=== PATIENT | male | born 1975 | race Caucasian/White ===

== ENCOUNTER 2025-04-27 20:26 | Inpatient (IN) | payer OTHER, SELFPAY ==
[2025-04-27 16:46] VITALS: BP 157/97
[2025-04-27 17:11] LABS: Hematocrit 46.0 % (39.0-52.0); Hemoglobin 15.5 g/dL (13.0-18.0); Mean Corp Hgb Conc. 33.7 g/dL (33.0-37.0); Mean Corpuscular Volume 89.1 fL (80.0-94.0); Nucleated Red Blood Cells % 0 % (-); Platelet Count 246 10^3/uL (130-400); Red Cell Dist. Width 12.7 % (11.5-14.5)
[2025-04-27 17:27] LABS: ALT (SGPT) 29 U/L (0-50); AST (SGOT) 28 U/L (17-59); Albumin 4.6 g/dl (3.5-5.0); Alkaline Phosphatase 73 U/L (38-126); Blood Urea Nitrogen 16 mg/dl (9-20); Calcium 9.7 mg/dl (8.4-10.2); Carbon Dioxide 26 mmol/L (22-30); Chloride 105 mmol/L (98-107); Glucose 170 mg/dl (70-99); Lipase 112 U/L (23-300); Potassium 4.0 mmol/L (3.5-5.1); Sodium 137 mmol/L (135-145); Total Protein 7.4 g/dl (6.3-8.2); eGFR > 60.00
[2025-04-27 17:41] LABS: Troponin I 0.115 ng/ml
--- NOTE | 2025-04-27 17:50 | ED.GENMED ---
Addendum entered and electronically signed by Emery Louis MD 04/27/25 21:24:
Negative chest x-ray
Original Note:
History of Present Illness
General
Chief Complaint: Chest Pain
Source: patient
Exam Limitations: none
Time Seen by Provider: 04/27/25 17:49
History of Present Illness
History of Present Illness:
50-year-old male has had about 10 days of mostly exertional chest pressure and shortness of breath. Resolved with sitting still. Has had occasional episodes at rest. Will typically last 15 to 20 minutes. Last most significant episode was this
morning although he did have some sense walking back to the room. Currently asymptomatic. No radiation to the jaw or back. No pleuritic pain.
Past History
Past History
ED Past Medical History: Hypercholesterolemia and Hypothyroidism
ED Past Surgical History: Other
Phy Exam
Physical Exam
Physical Exam:
GENERAL: Alert and oriented in no apparent distress
EYE: Orbits normal.
NECK: Supple, no significant adenopathy.
ENT: Pharynx without erythema
CARDIAC: Regular rate and rhythm without any obvious murmurs.
LUNGS: Clear breath sounds,normal
ABDOMEN: Soft, without focal tenderness or distention
NEUROLOGICAL: Alert and oriented , grossly non-focal
SKIN: Warm and dry, no rash or lesion, no discoloration, skin intact.
MUSCULOSKELETAL: No edema,no deformity.Good color
PSYCH: Normal and appropriate interaction.
Scores
Heart Score for Chest Pain Patients
STEMI patient?: No
History: Highly Suspicious
ECG: Normal
Age: >45 - <65 years
Risk Factors: 1 or 2 Risk Factors
Troponin: >1 - <3 x Normal Limit
Heart Score for Chest Pain Patients: 5
Heart Score Risk: 20.3% MACE over next 6 weeks
Course
Orders/Labs/Results
Orders:
Orders
04/27/25 16:49
EKG [Electrocardiogram (*1)] Urgent
Reason for Study: Chest Pain
EKG- Treatment ONCE
04/27/25 17:01
Complete Blood Count/With Diff Urgent
Comprehensive Metabolic Panel Urgent
Lipase Urgent
Troponin I Urgent
04/27/25 18:03
IV Insert/Care/Rem.- Treatment PRN
Aspirin Chewable [Low Strength Aspirin] 324 mg PO NOW STA
Nursing to Place Non Medication Order As Directed
Physician Order: PTT 6 hours after initial start of Heparin infusion
04/27/25 18:19
PTT Urgent
Comment: Obtain baseline before beginning heparin infusion if not already collected
04/27/25 18:25
Heparin 4,000 units IV NOW STA
Nursing to Place Non Medication Order As Directed
Physician Order: PTT 6 hours after initial start of Heparin infusion
04/27/25 18:30
Heparin 35025 Units/250 ml 25,000 units in 250 ml IV PER PROTOCOL
Weight to be used for heparin protocol in kilograms (kg):: 94
Protocol:: Cardiac Tx/Acute Coronary
PTT Goal Range to be used:: PTT 73 to 111 seconds
Order type:: Initial
INITIAL Infusion Dose (UNITS/KG/hr) & then follow protocol:: 12 units/kg/hr
Infusion Dose in UNITS/hr & then follow protocol (UNITS/hr):: 1,000
INFUSION RATE in mL/hr & then follow protocol (mL/hr):: 10
PTT less than or equal to 64 seconds:: Increase rate by 200 units/hr (+ 2 mL/hr)
PTT 64.1 to 72.9 seconds:: Increase rate by 100 units/hr (+ 1 mL/hr)
PTT 73 to 111 seconds:: Target Range. No change in rate.
PTT 111.1 to 130.9 seconds:: Decrease rate by 100 units/hr (- 1 mL/hr)
PTT 131 to 199.9 seconds:: HOLD for 1 hr. Then decrease rate by 200 units/hr (- 2 mL/hr)
PTT greater than or equal to 200 seconds:: HOLD for 2 hrs & Notify Provider. Then decrease by 200 units/hr (-
2 mL/hr)
Lab follow-up:: Each change, PTT q6h until 2 consecutive are therapeutic. Then PTT
daily.
Abnormal Lab Results
04/27/25
17:01
Eosinophils % 8.3 H %
(0-6)
Glucose 170 H mg/dl
(70-99)
Troponin I 0.115 H* ng/ml
04/27/25 17:01
04/27/25 17:01
Vital Signs
Initial and Last Documented VS:
Initial Vital Signs
Temp Pulse Resp BP Pulse Ox
98.0 F 73 18 157/97 98
04/27/25 16:46 04/27/25 16:46 04/27/25 16:46 04/27/25 16:46 04/27/25 16:46
Last Documented Vital Signs
Temp Pulse Resp BP Pulse Ox
98.0 F 60 12 135/91 98
04/27/25 16:46 04/27/25 19:00 04/27/25 19:00 04/27/25 19:00 04/27/25 19:00
MDM/Problems Addressed
Differential Diagnosis Includes:
Patient's story is very concerning for new onset angina/unstable angina. Currently asymptomatic. Aspirin heparin and admit. Discussed with cardiology
*Pulse Oximetry
SaO2: 98
Oxygen Mode of Delivery: Room air
Patient hypoxic: no
*EKG
Interpreted by ED Provider?: Yes
Interpretation: normal
Comparison EKG: no comparison EKG present
Heart Rate: 61
Rate: normal
Rhythm: sinus
Sherman: normal axis
Interval: normal interval
QRS Pattern: normal QRS
Ischemia: no ischemia
*Critical Care Note
Total Time (30-74mins, 75-104mins- exclusive of procedures): 15
ED Attending Note
-
Portions of this chart may have been created with voice recognition software.� Occasional wrong word or��sound alike� substitutions may have occurred due to the inherent limitations of voice recognition software.
Discharge Plan
Departure
Patient Disposition: Admit
Date of Disposition: 04/27/25
Time of Disposition: 18:04
Presentation/result/management discussed w/ accepting MD/DO: Cardiology
Discharge Problem:
New onset unstable angina.
Prescriptions:
No Action
Advil Cold and Sinus 30-200 mg Tablet
2 tab PO TIDPRN PRN (Reason: cold and sinus)
atorvastatin 10 mg Tablet
10 mg PO DAILY
levothyroxine 100 mcg Tablet
100 mcg PO SUTUTHSA
levothyroxine 100 mcg Tablet
150 mcg PO MOWEFR
citalopram 20 mg Tablet
20 mg PO DAILY
Interventions
Interventions:
*Risk Screen - Suicide Last Done: 04/27/25 16:46
*General Assessment Last Done: 04/27/25 16:46
ED- Cardiac Assessment Last Done: 04/27/25 19:12
Discharge Date and Time
Print Language: GEORGIAN
[2025-04-27 18:18] VITALS: BP 152/93
[2025-04-27 18:19] VITALS: BMI 28.9
[2025-04-27 18:46] LABS: APTT 23.5 Sec (23.4-35.0)
[2025-04-27] MEDS: HEPARIN 25000 UNITS/250 ML IV (18:49)
[2025-04-27] MEDS: LOW STRENGTH ASPIRIN 324 MG PO (18:49)
[2025-04-27] MEDS: HEPARIN 4000 UNITS IV (18:49)
[2025-04-27 19:00] VITALS: BP 135/91
--- NOTE | 2025-04-27 20:09 | HPS.HSE ---
Family Physician
-
Family Physician: Kalyani Logan
Chief Complaint
-
exertional CP
History of Present Illness
HPI
50M HX HLD, Hypothyroidism seen at ER
- 10 days of mostly exertional chest pressure and shortness of breath.
- Resolved with sitting still.
- occasional episodes at rest last 15 to 20 minutes.
- Last most significant episode was this morning although he did have some sense walking back to the room.
- Currently asymptomatic.
- No radiation to the jaw or back. No pleuritic pain.
Medical History
Past Medical History
Past Medical History: Reports HTN and Hypothyroidism
Past Surgical History: Reports None
Social History
Tobacco: Non-smoker (No cigarettes )
Alcohol: Occasional
Drug: Marijuana
Family History
Family History: Not pertinent
Allergies / Home Medications
Allergies reflects when Allergies were last updated in [employer]
Home Medications with original date entered in [employer].
Allergy/Medication List:
Allergies
Allergy/AdvReac Type Severity Reaction Status Date / Time
No Known Allergies Allergy Unverified 04/27/25 16:48
Home Medications
atorvastatin 10 mg tablet 10 mg PO DAILY 04/27/25
citalopram 20 mg tablet 20 mg PO DAILY 04/27/25
levothyroxine 100 mcg tablet 100 mcg PO SUTUTHSA 04/27/25
levothyroxine 100 mcg tablet 150 mcg PO MOWEFR 04/27/25
omeprazole 20 mg tablet,delayed release 20 mg PO DAILY 04/27/25
pseudoephedrine-ibuprofen 30 mg-200 mg tablet (Advil Cold and Sinus) 2 tab PO TIDPRN PRN cold and sinus 04/27/25
Review of Systems
-
Constitutional: Reports No Symptoms
EENT: Reports No Symptoms
Respiratory: Reports No Symptoms
Cardiac: Reports Chest Pain
Abdomen/GI: Reports No Symptoms
: Reports No Symptoms
Musculoskeletal: Reports No Symptoms
Skin: Reports No Symptoms
Neurological: Reports No Symptoms
Endocrine: Reports No Symptoms
Hematologic/Lymphatic: Reports No Symptoms
Psych: Reports No Symptoms
Physical Exam
Vital Signs
Vital Signs
Temp Pulse Resp BP Pulse Ox
98.0 F 60 12 135/91 98
04/27/25 16:46 04/27/25 19:00 04/27/25 19:00 04/27/25 19:00 04/27/25 19:00
Physical Exam
General: Well Developed, Well Nourished and No Apparent Distress
HEENT: NormoCephalic, Moist mucous membranes and Atraumatic
Respiratory: Clear
Cardiac: S1/S2 and Regular Rhythm; No Murmur or Rub
GI: Soft, Non Tender, Non Distended and Normal Bowel Sounds; No Organomegaly
Rectal: Deferred by Provider
Musculoskeletal: No Clubbing, No Cyanosis and No Edema
Skin: No Rash
Neuro: Nonfocal/grossly intact
Laboratory Results
-
04/27/25 17:01
04/27/25 17:01
Laboratory Results
APTT 23.5 Sec (23.4-35.0) 04/27/25 18:19
Total Bilirubin 0.8 mg/dl (0.2-1.3) 04/27/25 17:01
AST 28 U/L (17-59) 04/27/25 17:01
ALT 29 U/L (0-50) 04/27/25 17:01
Alkaline Phosphatase 73 U/L (38-126) 04/27/25 17:01
Troponin I 0.115 ng/ml H* 04/27/25 17:01
Lipase 112 U/L (23-300) 04/27/25 17:01
Data Reviewed
-
Medical Tests (Nuc Med, Echo, EKG etc): Report Reviewed by me
Lab Data: Labs Reviewed by me
Impression/Plan
-
Vital Signs
Temp Pulse Resp BP Pulse Ox
98.0 F 60 12 135/91 98
04/27/25 16:46 04/27/25 19:00 04/27/25 19:00 04/27/25 19:00 04/27/25 19:00
Labs
04/27/25
17:01
Creatinine 0.9
Glucose 170 H
Troponin I 0.115 H*
EKG
NORMAL SINUS RHYTHM
NORMAL ECG
NO PREVIOUS ECGS AVAILABLE
Confirmed by MANUEL ANGELES MD ([id number]) on 04/27/2025 6:49:16 PM
NO PRIOR hospitalist admission:
ASSESSMENT & PLAN
Pending Rx reconciliation
concerning for new onset unstable ACS
Suspect evolving NSTEMI
- POS TPNI , Nl EKG
- currently asymptomatic.
- agree with Heparin gtt
- ASA
- SL NTG PRN for CP
- ECHO vs Ischemic eval in AM
- NPO after MN except sips and PO meds
- [facility] card consulted
Hypothyroid
- stable
- on LT4
DVT Px: o Heparin gt
Full Code:
IVU
[2025-04-27 21:00] VITALS: BP 106/83
--- NOTE | 2025-04-27 21:23 | ED.GENMED ---
History of Present Illness
General
Chief Complaint: Chest Pain
Time Seen by Provider: 04/27/25 17:49
Past History
Past History
ED Past Medical History: Hypercholesterolemia and Hypothyroidism
ED Past Surgical History: Other
Course
Orders/Labs/Results
Orders:
Orders
04/27/25 16:49
EKG [Electrocardiogram (*1)] Urgent
Reason for Study: Chest Pain
EKG- Treatment ONCE
04/27/25 17:01
Complete Blood Count/With Diff Urgent
Comprehensive Metabolic Panel Urgent
Lipase Urgent
Troponin I Urgent
04/27/25 18:03
IV Insert/Care/Rem.- Treatment PRN
Aspirin Chewable [Low Strength Aspirin] 324 mg PO NOW STA
Nursing to Place Non Medication Order As Directed
Physician Order: PTT 6 hours after initial start of Heparin infusion
04/27/25 18:19
PTT Urgent
Comment: Obtain baseline before beginning heparin infusion if not already collected
04/27/25 18:25
Heparin 4,000 units IV NOW STA
Nursing to Place Non Medication Order As Directed
Physician Order: PTT 6 hours after initial start of Heparin infusion
04/27/25 18:30
Heparin 55405 Units/250 ml 25,000 units in 250 ml IV PER PROTOCOL
Weight to be used for heparin protocol in kilograms (kg):: 94
Protocol:: Cardiac Tx/Acute Coronary
PTT Goal Range to be used:: PTT 73 to 111 seconds
Order type:: Initial
INITIAL Infusion Dose (UNITS/KG/hr) & then follow protocol:: 12 units/kg/hr
Infusion Dose in UNITS/hr & then follow protocol (UNITS/hr):: 1,000
INFUSION RATE in mL/hr & then follow protocol (mL/hr):: 10
PTT less than or equal to 64 seconds:: Increase rate by 200 units/hr (+ 2 mL/hr)
PTT 64.1 to 72.9 seconds:: Increase rate by 100 units/hr (+ 1 mL/hr)
PTT 73 to 111 seconds:: Target Range. No change in rate.
PTT 111.1 to 130.9 seconds:: Decrease rate by 100 units/hr (- 1 mL/hr)
PTT 131 to 199.9 seconds:: HOLD for 1 hr. Then decrease rate by 200 units/hr (- 2 mL/hr)
PTT greater than or equal to 200 seconds:: HOLD for 2 hrs & Notify Provider. Then decrease by 200 units/hr (-
2 mL/hr)
Lab follow-up:: Each change, PTT q6h until 2 consecutive are therapeutic. Then PTT
daily.
04/27/25 20:12
CXR Port [CR Chest Portable - 1 View] Urgent
Comment:
Reason For Exam: cp
Reason Study Needs to be Portable: Patient Unstable
04/27/25 20:15
Admit/Transfer Patient As Directed
Co-Sign Provider:
Level of Care: Inpatient admission
Assign to:: IVU
Physician / Group: [email or web address]
Diagnosis: ACS, NSTEMI
Reason for Hospitalization: ACS, NSTEMI
Expected length of stay greater than two midnights?: Yes
ELOS- Estimated Length of Stay in days: 3
I certify the patient meets the requirements for IP care: Yes
04/27/25 20:18
Code Status As Directed
Resuscitation Status: Full Code
Abnormal Lab Results
04/27/25
17:01
Eosinophils % 8.3 H %
(0-6)
Glucose 170 H mg/dl
(70-99)
Troponin I 0.115 H* ng/ml
04/27/25 17:01
04/27/25 17:01
Vital Signs
Initial and Last Documented VS:
Initial Vital Signs
Temp Pulse Resp BP Pulse Ox
98.0 F 73 18 157/97 98
04/27/25 16:46 04/27/25 16:46 04/27/25 16:46 04/27/25 16:46 04/27/25 16:46
Last Documented Vital Signs
Temp Pulse Resp BP Pulse Ox
98.0 F 60 14 106/83 99
04/27/25 16:46 04/27/25 21:00 04/27/25 21:00 04/27/25 21:00 04/27/25 21:00
*Radiology
Radiology exam reviewed: preliminary read by ED provider (neg)
*Pulse Oximetry
SaO2: 99
Oxygen Mode of Delivery: Room air
ED Attending Note
-
Portions of this chart may have been created with voice recognition software.� Occasional wrong word or��sound alike� substitutions may have occurred due to the inherent limitations of voice recognition software.
Discharge Plan
Departure
Patient Disposition: Admit
Date of Disposition: 04/27/25
Time of Disposition: 18:04
Presentation/result/management discussed w/ accepting MD/DO: Cardiology
Discharge Problem:
New onset unstable angina.
Interventions
Interventions:
*Risk Screen - Suicide Last Done: 04/27/25 16:46
*General Assessment Last Done: 04/27/25 16:46
*Neglect/Abuse Screening Last Done: 04/27/25 19:44
*ED- Fall Risk Assessment Last Done: 04/27/25 19:40
*ED COVID-19 Vaccine History Last Done: 04/27/25 19:40
ED- Cardiac Assessment Last Done: 04/27/25 19:12
[2025-04-27 21:58] VITALS: BP 141/94
[2025-04-27 22:59] VITALS: BMI 28.7
[2025-04-27 23:06] LABS: APTT 35.3 Sec (23.4-35.0)
--- NOTE | 2025-04-27 23:06 | PTCARENOTE ---
Received pt from ED @ ~2200. AAOx3, VSS-- NSR on monitor. bedside. CP 11/01. Heparin gtt running through right AC @ 1000 units/hr. ED RN mentioned pt having intermittent numbness on right side of face in ED-- was notified downstairs and was
not concerned b/c pt was 'already on heparin.' Pt agrees to call RN with any worsening numbness or increase in chest pain. Discussed plan of care for evening and being NPO @ midnight. Pt verbalizes understanding. Call worley within reach.
[2025-04-27 23:19] LABS: Troponin I 0.132 ng/ml
[2025-04-28] VITALS (13 sets, daily range): BP systolic 119–157; BP diastolic 77–108; BMI 28.6
[2025-04-28 05:43] LABS: APTT 37.1 Sec (23.4-35.0)
[2025-04-28 05:44] LABS: ALT (SGPT) 30 U/L (0-50); AST (SGOT) 26 U/L (17-59); Albumin 4.4 g/dl (3.5-5.0); Alkaline Phosphatase 86 U/L (38-126); Blood Urea Nitrogen 14 mg/dl (9-20); Calcium 9.3 mg/dl (8.4-10.2); Carbon Dioxide 26 mmol/L (22-30); Chloride 104 mmol/L (98-107); Estimated Creatinine Clearance 102 ml/min; Glucose 121 mg/dl (70-99); HDL Cholesterol 46 mg/dl; LDL Cholesterol, Calculated 156 mg/dl; Potassium 4.3 mmol/L (3.5-5.1); Sodium 137 mmol/L (135-145); Total Protein 7.0 g/dl (6.3-8.2); Very Low Density Lipoprotein 33 mg/dl (0-30); eGFR > 60.00
[2025-04-28 05:47] LABS: Hematocrit 44.1 % (39.0-52.0); Hemoglobin 15.3 g/dL (13.0-18.0); Mean Corp Hgb Conc. 34.7 g/dL (33.0-37.0); Mean Corpuscular Volume 88.2 fL (80.0-94.0); Platelet Count 240 10^3/uL (130-400); Red Cell Dist. Width 12.9 % (11.5-14.5)
[2025-04-28 06:02] LABS: Troponin I 0.170 ng/ml
[2025-04-28] MEDS: SYNTHROID 150 MCG PO (06:14)
[2025-04-28] MEDS: CELEXA 20 MG PO (08:13)
[2025-04-28] MEDS: LIPITOR 10 MG PO (08:13)
[2025-04-28] MEDS: PROTONIX 40 MG PO (08:13)
--- NOTE | 2025-04-28 08:41 | CON.CAR ---
Addendum entered and electronically signed by Ramón Osorio MD 04/28/25 10:47:
Attending addendum: Patient seen and examined. PA note reviewed. I met with patient and his in findings have been independently confirmed by me. Briefly, this is a 50-year-old gentleman with a past medical history notable for reflux,
hyperlipidemia, and hypothyroidism. He presented to [facility] emergency department with a 1 to 2-week history of exertional chest pressure with shortness of breath. He initially thought that the symptoms were related to heat, however,
the symptoms have persisted and at times have occurred at rest. He was admitted to [facility] and found to have a troponin of 0. 115 ng/mL. He was loaded with aspirin and started on heparin. His subsequent troponin was even slightly
higher.
Physical Exam:
GEN: AAO x 3.��No acute distress
HEENT:��NC/AT, sclera are anicteric, hearing and nares are normal.��MMM
NECK: Supple.��Normal JVP
LUNGS: Clear to bases bilaterally.��No wheezing or rhonchi
CV: Regular rate and rhythm.��Normal S1/S2.��No S3, No S4.��Murmur: None
ABD : Soft, NT, ND, No HSM.��Bowel sounds are present.
EXT: No CCE
NEURO: No focal neurologic deficits��
IMPRESSION/RECOMMENDATION:
- Unstable angina-nonSTEMI:
Continue heparin
Aspirin 81 mg daily
Discussed treatment options including conservative or invasive angiography. Clearly we would favor an invasive treatment plan in this 50-year-old active gentleman and he is agreeable. Discussed the risks and benefits of coronary angiography at
length with patient and his
High intensity statin therapy
Further management decisions to be made after the angiogram is completed
-Hyperlipidemia
Will need high intensity lipid-lowering given elevated troponin
-Hyperglycemia
Will check hemoglobin A1c if not done so already
Original Note:
Consultation
Consultation Request
Date/Time Consultation Requested: 04/28/2025
Date/Time Consultation Performed: 04/28/2025
Requesting Provider: Dr. Arias
Performing Provider: Rupa Marr PA-C for Dr. Osorio
Reason for Consultation: Chest pain, elevated troponin
Medical History
-
History of Present Illness:
HPI: Maximo is a 50 year old male with PMH of GERD, HLD, and hypothyroidism who presented to [facility] ER for evaluation of chest pain/pressure and shortness of breath. He states over the past 10 days he has developed exertional chest pressure and
shortness of breath. 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 He initially thought it was related to the heat, so did not pay much attention to the symptoms. Symptoms would
resolve with rest. Describes it as a chest pressure/heaviness feeling like someone was standing on his chest that directly correlated to his level of activity. Symptoms resolved with rest. Over the past week or so, symptoms have progressed and he
has had more severe, longer lasting, and more frequent symptoms and has even developed symptoms at rest. Symptoms persisted, so he came to ER for evaluation. In ER, he had recurrent symptoms while walking back to ER room, and he was found to have
elevated troponin of 0.115. He was loaded with aspirin and started on IV heparin. Chest x-ray revealed no acute disease. EKG sinus bradycardia with no acute ischemic changes noted. He was admitted for further workup and evaluation. Cardiology
consulted given concern for NSTEMI. He has been feeling fairly well overnight and states pain currently is only a dull ache.
PMH:
GERD
Hypothyroidism
HLD
Past Medical History
Past Medical History: Other (In HPI)
Social History
Tobacco: Former Smoker (Years ago)
Alcohol: Occasional
Drug: None
Personal:
Living: With Family
Employment: Employed (Construction)
Family History
Family History: Diabetes
Allergies / Home Medications
Allergy/AdvReac Type Severity Reaction Status Date / Time
No Known Allergies Allergy Unverified 04/27/25 16:48
�Medication �Instructions �Recorded �Confirmed �Type
atorvastatin 10 mg tablet 10 mg PO DAILY 04/27/25 04/27/25 History
citalopram 20 mg tablet 20 mg PO DAILY 04/27/25 04/27/25 History
levothyroxine 100 mcg tablet 100 mcg PO SUTUTHSA 04/27/25 04/27/25 History
levothyroxine 100 mcg tablet 150 mcg PO MOWEFR 04/27/25 04/27/25 History
omeprazole 20 mg tablet,delayed 20 mg PO DAILY 04/27/25 04/27/25 History
release
pseudoephedrine-ibuprofen 30 2 tab PO TIDPRN PRN cold and sinus 04/27/25 04/27/25 History
mg-200 mg tablet (Advil Cold and
Sinus)
Review of Systems
-
History Source: Patient
All other systems: Negative unless noted
Physical Exam
Vital Signs
Temp Pulse Resp BP Pulse Ox
97.3 F 53 18 137/77 97
04/28/25 07:26 04/28/25 07:26 04/28/25 07:26 04/28/25 07:26 04/28/25 07:26
Lab Results
04/28/25 05:07
04/28/25 05:07
Troponin I 0.170 ng/ml H* D 04/28/25 05:07
Physical Exam
General: Well Developed, Well Nourished and No Apparent Distress
HEENT: Normocephalic, Anicteric and Moist Mucous Membranes
Respiratory: Clear and Non Labored Respirations
Cardiac: S1/S2 and Regular Rhythm
Musculoskeletal: No Clubbing, No Cyanosis and No Edema
Skin: Warm and Dry
Neuro: AO x 3 and Nonfocal/Grossly Intact
Psych: Calm
Impression / Plan
-
PCP: Dr. Kalyani Logan
Cafeteria Supervisor: None, follows w/ Dr. Hanna
Impression:
Presented with chest pain, SOB
Elevated troponin, concern for NSTEMI
GERD
Hypothyroidism
HLD
Echo 04/28/2025: Study pending
Plan:
-Presented with chest pain. Admitted with elevated troponin, concern for NSTEMI/Unstable angina.
-Initial troponin 0.115, trending up to 0.170 on most recent check. Continue to trend to peak. Remains pain free currently, but does have dull ache in chest.
-Continue IV heparin. Loaded with aspirin 324 mg in ER. Continue aspirin 81 mg daily.
-EKG reviewed, sinus bradycardia with no acute ischemic changes noted.
-Check echo.
-Given concerning story for angina w/ elevated troponin, tentative plan for [facility] later today. Keep NPO.
-LDL 156. On Lipitor 10 mg daily as outpatient. Consider transition to high intensity statin pending results of cath.
-Hgb A1c pending.
-BP overall stable, continue to follow. No known/reported h/o HTN
HPI: Maximo is a 50 year old male with PMH of GERD, HLD, and hypothyroidism who presented to [facility] ER for evaluation of chest pain/pressure and shortness of breath. He states over the past 10 days he has developed exertional chest pressure and
shortness of breath. 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 He initially thought it was related to the heat, so did not pay much attention to the symptoms. Symptoms would
resolve with rest. Describes it as a chest pressure/heaviness feeling like someone was standing on his chest that directly correlated to his level of activity. Symptoms resolved with rest. Over the past week or so, symptoms have progressed and he
has had more severe, longer lasting, and more frequent symptoms and has even developed symptoms at rest. Symptoms persisted, so he came to ER for evaluation. In ER, he had recurrent symptoms while walking back to ER room, and he was found to have
elevated troponin of 0.115. He was loaded with aspirin and started on IV heparin. Chest x-ray revealed no acute disease. EKG sinus bradycardia with no acute ischemic changes noted. He was admitted for further workup and evaluation. Cardiology
consulted given concern for NSTEMI. He has been feeling fairly well overnight and states pain currently is only a dull ache.
Data Reviewed
-
EKG: Tracing Personally Visualized and interpreted
Radiology: Report Reviewed by me
Labs: Labs Reviewed by me
Old Records: Reviewed
[2025-04-28] MEDS: LOW STRENGTH ASPIRIN 81 MG PO (09:59)
[2025-04-28 10:19] LABS: Glycohemoglobin (HgbA1c) 6.5 % (4.0-5.6)
[2025-04-28 11:17] LABS: ACT-LR - POC 203 Seconds (116-155)
[2025-04-28 12:06] LABS: ACT-LR - POC 258 Seconds (116-155)
[2025-04-28 12:25] LABS: Troponin I 0.102 ng/ml
[2025-04-28] MEDS: COZAAR 50 MG PO (12:53)
--- NOTE | 2025-04-28 12:53 | ITS.CL.CATH ---
Labor Training Manager - Catheterization
Cardiac Catheterization
Procedure Report:
LEFT HEART CATH AND CORONARY INTERVENTION
Date of Procedure: April 28, 2025
Referring: Dr. Ramón Osorio
PROCEDURES:
1. Left heart catheterization with coronary and single-plane left ventriculography
2. Successful stenting of OM 2 with a 2.5 x 23 mm Xience stent that was implanted at 9 ashlee and postdilated with a 3.5 mm noncompliant balloon to 14 ashlee
3. Intravascular ultrasound
INDICATION: This is a 50-year-old gentleman with a past medical history notable for hypertension. He presented to [facility] with unstable anginal symptoms and subsequently ruled in for non-ST segment elevation myocardial infarction with a
low-level positive troponin. He continued to experience an awareness of his heart overnight and is now referred for coronary angiography
ACCESS: Right radial artery, 6 [place] sheath
HEMODYNAMICS (mmHg):
AO (s/d, m) : 112/84, 97
LV (s/d) : 115/10
LVEDP : 12
CORONARY FINDINGS
Dominance: Right
LEFT MAIN: Normal
LEFT ANTERIOR DESCENDING: The LAD arises normally from the left main and runs in the anterior interventricular groove. The LAD has minor irregularities but no focal obstructive stenosis. Several small to medium caliber diagonal branches arise from
the mid LAD
CIRCUMFLEX: The circumflex is a dominant vessel that supplying a moderate-sized bifurcating OM1. OM 2 has a 99% stenosis in its midportion with ANITHA II flow into the distal vessel
RIGHT CORONARY: The right coronary artery is a large-caliber dominant vessel with a 40% proximal stenosis and very eccentric 50-60% stenosis in the mid vessel. The PDA is large. The posterolateral branch is large
VENTRICULOGRAPHY: Left ventriculography is performed in PETERS projection. The digital single-plane left ventricular ejection fraction is visually estimated at 55-60% with mild focal anterolateral hypokinesis
ANGIOPLASTY PROCEDURE DETAIL: Upon review of the diagnostic catheterization films the decision was made to proceed with percutaneous revascularization of the high-grade stenosis in OM 2. Intravenous heparin was administered and the ACT was
monitored throughout the procedure and maintained within therapeutic limits. A 180 mg loading dose of ticagrelor was given prior to the interventional procedure. The origin of the left main was cannulated with a EBU 3.75 guiding catheter and a BMW
guidewire was advanced across the stenotic segment in OM 2 and into the distal vessel. Anterograde flow stopped after the wire was passed and we quickly proceeded to angioplasty the area with a 2.0 x 15 mm Trek balloon that was inflated to 8 ashlee
for 20 seconds. The predilation balloon was removed and exchanged for a 2.5 x 23 mm Xience stent which was positioned with angiographic and fluoroscopic guidance covering the entire diseased segment. The stent was implanted at 9 ashlee.
Intravascular ultrasound was performed using an GreenLancer Eye catheter. The stent appeared very well-approximated to the vessel wall distally and appeared under size in its mid and proximal portion with a luminal diameter measuring between 3.6 and 3.8
mm. The stent was postdilated to 14 ashlee with a 3.5 mm noncompliant balloon with a nice angiographic result.
SEDATION: 74 minutes of procedural sedation was utilized. An independent esthetician and manager medical spa was present to assist with and help manage the patient's level of consciousness and physiologic status
RADIATION SUMMARY: Fluoro Time (min): 13.2, Dose (mGy): 788, DAP (Gy.cm2) : 39.4
CONCLUSIONS
1. Successful stenting of high-grade stenosis in OM 2 with a 2.5 x 23 mm Xience stent that was implanted at nominal pressures and postdilated to high pressures with a 3.5 mm noncompliant balloon
2. Residual coronary disease in the mid right coronary artery
3. Preserved LV systolic function
RECOMMENDATIONS
1. Uninterrupted dual antiplatelet therapy
2. Patient will likely return on 04/29 for hemodynamic assessment of the right coronary artery. If the lesion is found to be significant we will proceed with percutaneous revascularization. Alternatively, could consider outpatient stress study,
however, patient works construction
3. High intensity statin and guideline directed medical therapy for goal blood pressure below 130/80
Copy to: Dr. Ramón Osorio
--- NOTE | 2025-04-28 13:36 | CM ---
Addendum entered by Colleen Arroyo 04/28/25 14:31:
Telephone call to [facility] to check if they have Ticagrelor 90 mg po bid in stock. Script sent to them to fill.
Original Note:
Reviewed chart. Met with and Mrs. Sanchez to review discharge plans. He states prior to admission he resides with his spouse in a two story home with four steps to enter. He states he has a full flight of steps to get to bedroom. He states he
has a full bathroom on each level. He states prior to admission he was independent with ambulation and adls. He states he does not have any DME in the home. He states he has a prescription plan and uses [facility]. Telephone call to his
insurance to check on his co-pay for Ticagrelor 90 mg po bid. His co-pay would be $25.00 a month. Telephone call to [facility] to see if they have it in stock. [facility] does not have it in stock and their warehouse does not have it
so he will not be able to get it in. Reviewed above with Mr. Sanchez and he suggested [facility] in [place]. Will call them to see if they have it in stock. Medical work-up in progress. The discharge plan is to return home with his spouse
when medically stable.
[2025-04-28 13:37] LABS: ACT-LR - POC > 397 Seconds (116-155)
[2025-04-28 13:37] LABS: ACT-LR - POC 237 Seconds (116-155)
--- NOTE | 2025-04-28 13:53 | W.PN.HOSP.TC ---
Today's Communication/Plan
-
ok for diet
likely dc in am
Assessment / Plan
Assessment / Plan
Physical Exam
General: Well Developed, Well Nourished and No Apparent Distress
HEENT: Normocephalic, Anicteric and Moist Mucous Membranes
Respiratory: Clear and Non Labored Respirations
Cardiac: S1/S2 and Regular Rhythm
Abdomen: Soft, non tender.
Musculoskeletal: No Clubbing, No Cyanosis and No Edema. Right wrist no swelling
Skin: Warm and Dry
Neuro: AO x 3 and Nonfocal/Grossly Intact
Psych: Calm
A/p
@ Acute non-ST segment elevation myocardial infarction with a low-level positive troponin
s/p LHC by Dr Osorio on 04/28 with successful stenting of OM 2
Continue dual antiplatelet therapy and high intensity statin with guideline directed medical therapy.
Right radial breast area, no swelling.
Appreciate cardiology help
# HTN
c/w BP medications
#Hypothyroid
- stable
- on LT4
Total time spent to see the patient, examine the patient, review data and lab result, discuss treatment plan with patient, nursing staff around 55 minutes
Anticipated Discharge: Within 24 hours
Subjective/Interval History
-
Date of Service: April 28, 2025
Seen post cath
No chest pain, feels same chest pressure
Objective Data
-
Labs:
Laboratory Results
04/28/25 04/28/25 04/28/25
05:07 12:00 18:00
WBC 7.3
Hgb 15.3
Hct 44.1
Plt Count 240
APTT 37.1 H Cancelled Cancelled
Sodium 137
Potassium 4.3
Chloride 104
Carbon Dioxide 26
BUN 14
Creatinine 0.9
Glucose 121 H
Calcium 9.3
Total Bilirubin 0.8
AST 26
ALT 30
Alkaline Phosphatase 86
Vital Signs:
Vital Signs
Temp Pulse Resp BP Pulse Ox
97.3 F 58 18 155/88 97
04/28/25 07:26 04/28/25 12:53 04/28/25 07:26 04/28/25 12:53 04/28/25 12:15
[2025-04-28] MEDS: TYLENOL 650 MG PO ×2 (15:45→19:48)
--- NOTE | 2025-04-28 19:03 | PTCARENOTE ---
~6022-8429: Handoff report received from isauro MCKEON. Pt Aox4, SB/NSR 50s-60s on tele, SBP 130s, RA satting 97%, clear bilat. + pulses, no edema. Pt c/o continuous midsternal CP which he describes as 'elephant sitting on my chest' of 01/30,
Provider made aware. pt NPO at this time for CCL later today. Heparin gtt infusing at 1400units/hr not therapeutic at this time. Next PTT ordered. at bedside. All needs met at this time, call worley within reach.
~2749-2025: EKG obtained per order. Report given to [facility], patient voided and underwear removed. Heparin gtt infusing at this time. Patient taken to [facility] by [facility] staff.
~1200: Report received from [facility]. Patient arrived in stable condition. No c/o CP at this time. R radial TR band in place. All needs met at this time, call worley within reach.
~4807-4819: Patient resting in bed. post-op fluids infused. R radial site CDI with TR band in place, no sign of oozing or hematoma at this time. Around 1400, air removed from TR band per order. All needs met at this time, call worley within reach.
~1430: Air removed from TR band.
~1500: site oozing, 3cc air placed back in band.
~1530: 3cc removed from band per protocol, no oozing noted at this time. PRN tylenol given for c/o headache.
~1600: TR band removed around 1615, site soft, CDI with no sign of bleeding or hematoma at this time. All needs met, call worley within reach.
~[id number]: Patient in room. Family at bedside. R radial wrist CDI, site soft. Pt headache improving after tylenol, now 01/30. All needs met at this time, call worley within reach. Handoff report given to isrrael MCKEON.
[2025-04-28] MEDS: BRILINTA 90 MG PO (19:17)
--- NOTE | 2025-04-28 23:32 | PTCARENOTE ---
Patient received at change of shift resting in the bed. Right radial puncture site with gauze and tegaderm C/D/I, radial pulse palpable. SR on telemetry. Oxygen saturation on room air 95-98%. Denies chest pain. Reports mild headache improving with
PRN acetaminophen, see MAR. Plan of care discussed including NPO at midnight for anticipated cath tomorrow. Spouse at bedside. Call worley within reach. Care ongoing.
[2025-04-29] VITALS (14 sets, daily range): BP systolic 103–143; BP diastolic 74–99; BMI 27.7
[2025-04-29 04:10] LABS: Hematocrit 45.6 % (39.0-52.0); Hemoglobin 16.3 g/dL (13.0-18.0); Mean Corp Hgb Conc. 35.7 g/dL (33.0-37.0); Mean Corpuscular Volume 88.2 fL (80.0-94.0); Platelet Count 266 10^3/uL (130-400); Red Cell Dist. Width 13.0 % (11.5-14.5)
[2025-04-29 04:30] LABS: Blood Urea Nitrogen 12 mg/dl (9-20); Calcium 9.8 mg/dl (8.4-10.2); Carbon Dioxide 25 mmol/L (22-30); Chloride 107 mmol/L (98-107); Estimated Creatinine Clearance 102 ml/min; Glucose 107 mg/dl (70-99); HDL Cholesterol 46 mg/dl; LDL Cholesterol, Calculated 161 mg/dl; Potassium 4.2 mmol/L (3.5-5.1); Sodium 139 mmol/L (135-145); Very Low Density Lipoprotein 35 mg/dl (0-30); eGFR > 60.00
[2025-04-29] MEDS: SYNTHROID 100 MCG PO (05:02)
[2025-04-29] MEDS: LIPITOR 80 MG PO (09:31)
[2025-04-29] MEDS: PROTONIX 40 MG PO (09:31)
[2025-04-29] MEDS: CELEXA 20 MG PO (09:32)
[2025-04-29] MEDS: COZAAR 50 MG PO (09:32)
[2025-04-29] MEDS: BRILINTA 90 MG PO ×2 (09:32→19:28)
[2025-04-29] MEDS: LOW STRENGTH ASPIRIN 81 MG PO (09:32)
--- NOTE | 2025-04-29 10:35 | CM ---
Reviewed chart. Met with Mr. Sanchez and his spouse to review discharge plans. Telephone call to [facility] in [place] to confirm Ticagrelor 90 mg po bid is ready for pick-up. It is ready. He states he is feeling better but he is going back to
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 Prior to admission he resides with his spouse in a two story home with four steps to enter. He has a full flight of steps to get to his bedroom. He has a full bathroom on each level. Prior to admission he was independent with
ambulation and adls. He does not have any DME in the home. He has a prescription plan and he would like his medications to go to [facility] in [place]. Medical work-up in progress. The discharge plan is to return home with his spouse when
medically stable.
--- NOTE | 2025-04-29 11:37 | W.PN.HOSP.TC ---
Today's Communication/Plan
-
Pt is going back to labor relations director for more intervention. No DC today
c/w current medications
Medications were sent to [facility] 04/29/25
Assessment / Plan
Assessment / Plan
Physical Exam
General: Well Developed, Well Nourished and No Apparent Distress
HEENT: Normocephalic, Anicteric and Moist Mucous Membranes
Respiratory: Clear and Non Labored Respirations
Cardiac: S1/S2 and Regular Rhythm
Abdomen: Soft, non tender.
Musculoskeletal: No Clubbing, No Cyanosis and No Edema. Right wrist no swelling
Skin: Warm and Dry
Neuro: AO x 3 and Nonfocal/Grossly Intact
Psych: Calm
A/p
@ Acute non-ST segment elevation myocardial infarction with a low-level positive troponin
s/p LHC by Dr Osorio on 04/28 with successful stenting of OM 2, plan seems to re-visit for more re-vascularization on 04/29
Continue dual antiplatelet therapy and high intensity statin with guideline directed medical therapy.
Right radial breast area, no swelling.
Appreciate cardiology help
# HLD
LDL 161
Lipitor was increased to 80 mg QD
# HTN
c/w BP medications
#Hypothyroid
- stable
- on LT4
Total time spent to see the patient, examine the patient, review data and lab result, discuss treatment plan with patient, nursing staff around 55 minutes
Anticipated Discharge: Within 24 hours
Subjective/Interval History
-
Date of Service: April 29, 2025
Objective Data
-
Labs:
Laboratory Results
04/29/25
03:16
WBC 7.8
Hgb 16.3
Hct 45.6
Plt Count 266
Sodium 139
Potassium 4.2
Chloride 107
Carbon Dioxide 25
BUN 12
Creatinine 0.9
Glucose 107 H
Calcium 9.8
Vital Signs:
Vital Signs
Temp Pulse Resp BP Pulse Ox
97.8 F 66 18 136/86 97
04/29/25 07:52 04/29/25 09:32 04/29/25 07:52 04/29/25 09:32 04/29/25 07:52
I&O
04/28/25 04/29/25 04/30/25
06:59 06:59 06:59
Intake Total 1180 / 1180
Balance 1180 / 1180
[2025-04-29 13:30] LABS: ACT-LR - POC 274 Seconds (116-155)
--- NOTE | 2025-04-29 14:32 | ITS.CL.CATH ---
Waste Reclaimer - Catheterization
Cardiac Catheterization
Procedure Report:
LEFT HEART CATH and IFR of RCA
Date of Procedure: April 29, 2025
Referring: Dr. Ramón Osorio
PROCEDURES:
1. Left heart catheterization selective right coronary angiogram.,
2. Functional physiologic testing with IFR of mid RCA
INDICATION: Maximo is a 50-year-old gentleman with past medical history of hypertension, coronary artery disease after presenting with NSTEMI found to have a high-grade OM 2 stenosis status post 2.5 x 23 mm Xience andreas point drug-eluting stent,
postdilated with 3.5 mm noncompliant balloon and residual CAD in the mid RCA now presenting for functional physiologic testing with IFR. He remains on aspirin and Brilinta.
ACCESS: Right radial artery, 6 [place]ali sheath
HEMODYNAMICS (mmHg):
AO (s/d, m) : 107/78, 89
LVEDP : 9
CORONARY FINDINGS:
Dominance: Right
RIGHT CORONARY: The right coronary artery is a large-caliber dominant vessel with a 40% proximal stenosis and very eccentric 50-60% stenosis in the mid vessel. The PDA is large. The posterolateral branch is large
HEMODYNAMIC ASSESSMENT OF THE MID RCA WITH A VOLCANO OMNI WIRE: The origin of the RCA was cannulated with a 6 Fr JR4 guide catheter. Intravenous heparin was administered and the ACT was followed during the procedure. Two hundred micrograms of
intracoronary nitroglycerin was given through the guide catheter. A Sodus Omni wire was advanced to the guide catheter tip and normalized just outside the guide catheter. The Omni wire was then carefully manipulated across the stenosis in the
mid RCA with the iFR above the ischemic threshold serially measuring 0.97, 0.97, 0.97. The Omni wire was then pulled back to the guide catheter where the Pd/Pa measured 1.0 confirming no baseline drift in pressure readings
SEDATION: 27 minutes of procedural sedation was utilized. An independent medical translator was present to assist with and help manage the patient's level of consciousness and physiologic status
RADIATION SUMMARY: Fluoro Time (min): 13.2, Dose (mGy): 788, DAP (Gy.cm2) : 39.4
CONCLUSIONS
1. 40% proximal RCA stenosis and very eccentric 50 to 60% mid RCA stenosis which is IFR negative at 0.97.
2. Normal LVEDP.
RECOMMENDATIONS
1. Uninterrupted dual antiplatelet therapy.
2. High intensity statin and guideline directed medical therapy for goal blood pressure below 130/80.
3. Outpatient referral for cardiac rehab.
Copy to: Dr. Ramón Osorio
Sara Urban MD, FACC, [facility]
--- NOTE | 2025-04-29 14:39 | PTCARENOTE ---
patient returned from heart cath, right radial R band intact, distal pulse weak but palpable. monitor shows NSR, VSS. no chest pain or discomfort. family at bedside.
[2025-04-29] MEDS: TYLENOL 650 MG PO (23:16)
--- NOTE | 2025-04-29 23:29 | PTCARENOTE ---
Patient received at change of shift resting in the bed. Right radial cath site with gauze and tegaderm C/D/I. Radial pulse palpable. Denies chest pain at this time. SR on telemetry. Oxygen saturation 95-96% on room air. Patient reported mild
headache, PRN acetaminophen given, see DEC. Ambulated independently in the [place] with issue. Plan of care discussed. Call worley within reach. Care ongoing.
[2025-04-30 02:50] VITALS: BP 122/84
[2025-04-30 02:52] VITALS: BMI 27.7
[2025-04-30 03:12] LABS: Hematocrit 47.4 % (39.0-52.0); Hemoglobin 16.2 g/dL (13.0-18.0); Mean Corp Hgb Conc. 34.2 g/dL (33.0-37.0); Mean Corpuscular Volume 88.9 fL (80.0-94.0); Platelet Count 265 10^3/uL (130-400); Red Cell Dist. Width 12.8 % (11.5-14.5)
[2025-04-30 03:36] LABS: Blood Urea Nitrogen 17 mg/dl (9-20); Calcium 9.8 mg/dl (8.4-10.2); Carbon Dioxide 24 mmol/L (22-30); Chloride 107 mmol/L (98-107); Estimated Creatinine Clearance 92 ml/min; Glucose 122 mg/dl (70-99); Potassium 4.3 mmol/L (3.5-5.1); Sodium 137 mmol/L (135-145); eGFR > 60.00
[2025-04-30] MEDS: SYNTHROID 150 MCG PO (05:55)
[2025-04-30 07:11] VITALS: BP 134/84
--- NOTE | 2025-04-30 08:05 | W.PN.CARDCBS ---
Addendum entered and electronically signed by René Hughes MD 04/30/25 11:12:
I saw and examined the patient.
The GENERAL UTILITY WORKER or PA's note was reviewed and I agree with the note.
Comment: General: Well developed, well nourished in NAD.
Stable cardiology status for discharge. Discussed in detail with patient and at bedside. Follow-up arranged.
Original Note:
Today's Communication / Plan
-
s/p OM2 PCI
continue asa, brilinta, cozaar, statin
cardiac rehab
OP cardiac follow up arranged
ok for DC to home
Impression / Plan
-
PCP: Dr. Kalyani Logan
Carbon Sequestration Plant Engineer: None, follows w/ Dr. Hanna
Impression:
Presented with chest pain, SOB
NSTEMI s/p OM2 PCI 04/28/25 with residual mod RCA disease, iFR negative by cath 04/29/25
GERD
Hypothyroidism
HLD
Echo 04/28/2025: EF 65%, no regional wall motion abnormalities, no significant valvular disease
Plan:
-Presented with chest pain. Admitted with elevated troponin, ruled in for NSTEMI with peak trop 0.17
-s/p cath 04/28 resulting in OM2 PCI. returned to casting house laborer for evaluation of RCA lesion, iFR negative so plan for medically managed
-continue asa, brilinta
-echo with results as above, reviewed with patient and at bedside 04/30
-BPs stable. continue cozaar.
-LDL 161. continue high intensity statin therapy
-discussed limiting ETOH use
-Hgb A1c pending
-cardiac rehab
-OP cardiac follow up arranged
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
-ok for DC to home today
-d/w nursing
HPI: Maximo is a 50 year old male with PMH of GERD, HLD, and hypothyroidism who presented to [facility] ER for evaluation of chest pain/pressure and shortness of breath. He states over the past 10 days he has developed exertional chest pressure and
shortness of breath. 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 He initially thought it was related to the heat, so did not pay much attention to the symptoms. Symptoms would
resolve with rest. Describes it as a chest pressure/heaviness feeling like someone was standing on his chest that directly correlated to his level of activity. Symptoms resolved with rest. Over the past week or so, symptoms have progressed and he
has had more severe, longer lasting, and more frequent symptoms and has even developed symptoms at rest. Symptoms persisted, so he came to ER for evaluation. In ER, he had recurrent symptoms while walking back to ER room, and he was found to have
elevated troponin of 0.115. He was loaded with aspirin and started on IV heparin. Chest x-ray revealed no acute disease. EKG sinus bradycardia with no acute ischemic changes noted. He was admitted for further workup and evaluation. Cardiology
consulted given concern for NSTEMI. He has been feeling fairly well overnight and states pain currently is only a dull ache.
Progress Note - Carbon Sequestration Plant Engineer
Subjective
Date of Service: April 30, 2025
no issues overnight
Objective
Labs:
04/30/25 02:56
04/30/25 02:56
Labs
Hgb 16.2 g/dL (13.0-18.0) 04/30/25 02:56
Hct 47.4 % (39.0-52.0) 04/30/25 02:56
Plt Count 265 10^3/uL (130-400) 04/30/25 02:56
APTT Cancelled 04/28/25 18:00
Sodium 137 mmol/L (135-145) 04/30/25 02:56
Potassium 4.3 mmol/L (3.5-5.1) 04/30/25 02:56
BUN 17 mg/dl (9-20) 04/30/25 02:56
Creatinine 1.0 mg/dL (0.7-1.3) 04/30/25 02:56
Glucose 122 mg/dl (70-99) H 04/30/25 02:56
Troponins
04/27/25 04/27/25 04/28/25
17:01 22:45 00:47
Troponin I 0.115 H* 0.132 H* Cancelled
04/28/25 04/28/25 04/28/25
05:07 11:22 19:00
Troponin I 0.170 H* D 0.102 H* D Cancelled
Vital Signs and I&O:
Vital Signs
Temp Pulse Resp BP Pulse Ox
98.1 F 68 20 122/84 94
04/30/25 07:11 04/30/25 06:00 04/30/25 07:11 04/30/25 02:50 04/30/25 07:11
Vital Signs
Temp Pulse Resp BP Pulse Ox
98.1 F 68 20 122/84 94
04/30/25 07:11 04/30/25 06:00 04/30/25 07:11 04/30/25 02:50 04/30/25 07:11
Intake & Output
04/28/25 04/29/25 04/30/25 05/01/25
07:59 07:59 07:59 07:59
Intake Total 1180 / 1180 405 / 405
Balance 1180 / 1180 405 / 405
Physical Exam
Physical Exam
GEN: No distress, awake, alert, oriented x3
HEENT: supple, anicteric, mmm, eomi
LUNGS: CTA B/L, no wheezes/rales
CV: Reg, S1/S2, no murmur
ABD: soft, BS+, NT/ND
EXT: No cyanosis, clubbing, edema
NEURO: Gross non-focal
SKIN: Warm, pink, dry. No rash. R wrist site c/d/i
[2025-04-30] MEDS: LIPITOR 80 MG PO (08:34)
[2025-04-30] MEDS: BRILINTA 90 MG PO (08:34)
[2025-04-30] MEDS: CELEXA 20 MG PO (08:34)
[2025-04-30] MEDS: COZAAR 50 MG PO (08:34)
[2025-04-30] MEDS: LOW STRENGTH ASPIRIN 81 MG PO (08:34)
[2025-04-30] MEDS: PROTONIX 40 MG PO (08:34)
--- NOTE | 2025-04-30 09:32 | W.PN.HOSP.TC ---
Today's Communication/Plan
-
dc
Assessment / Plan
Assessment / Plan
Physical Exam
General: Well Developed, Well Nourished and No Apparent Distress
HEENT: Normocephalic, Anicteric and Moist Mucous Membranes
Respiratory: Clear and Non Labored Respirations
Cardiac: S1/S2 and Regular Rhythm
Abdomen: Soft, non tender.
Musculoskeletal: No Clubbing, No Cyanosis and No Edema. Right wrist no swelling
Skin: Warm and Dry
Neuro: AO x 3 and Nonfocal/Grossly Intact
Psych: Calm
A/p
@ Acute non-ST segment elevation myocardial infarction with a low-level positive troponin
s/p LHC by Dr Osorio on 04/28 with successful stenting of OM 2, re cath on 04/29 with no further intervention needed.
Continue dual antiplatelet therapy and high intensity statin with guideline directed medical therapy.
Right radial breast area, no swelling.
Appreciate cardiology help
# HLD
LDL 161
Lipitor was increased to 80 mg QD
# HTN
He was counseled about monitoring BP at home.
c/w BP medications
#Hypothyroid
- stable
- on LT4
Total discharge time spent to see the patient, examine the patient, review data and lab result, discuss discharge plan with patient, cardiology, nursing staff around 65 minutes
Anticipated Discharge: Today
Subjective/Interval History
-
Date of Service: April 30, 2025
No chest pain or pressure
Objective Data
-
Labs:
Laboratory Results
04/30/25
02:56
WBC 9.6
Hgb 16.2
Hct 47.4
Plt Count 265
Sodium 137
Potassium 4.3
Chloride 107
Carbon Dioxide 24
BUN 17
Creatinine 1.0
Glucose 122 H
Calcium 9.8
Vital Signs:
Vital Signs
Temp Pulse Resp BP Pulse Ox
98.1 F 68 20 134/84 98
04/30/25 07:11 04/30/25 09:00 04/30/25 07:11 04/30/25 08:34 04/30/25 09:10
I&O
04/29/25 04/30/25 05/01/25
06:59 06:59 06:59
Intake Total 1180 / 1180 405 / 405
Balance 1180 / 1180 405 / 405
--- NOTE | 2025-04-30 09:48 | CM ---
Reviewed chart. Met with and Mrs. Sanchez to review discharge plans. He states he is feeling well and maybe able to go home soon. We reviewed all of his new medications were sent to [facility] in [place]. Prior to admission he resides
with his spouse in a two story home with four steps to enter. He has a full flight of steps to get to bedroom. He has a full bathroom on each level. Prior to admission he was independent with ambulation and adls. He does not have any DME in the
home. He does not have any DME in the home. He has a prescription plan. Medical work-up in progress. The discharge plan is to return home with his spouse when medically stable.
[2025-04-30 10:05] LABS: Glycohemoglobin (HgbA1c) 6.4 % (4.0-5.6)
--- NOTE | 2025-04-30 10:38 | PTCARENOTE ---
D/C instructions given to patient and , both verbalizes understanding. INT x 2 D/C;d, telemetry d/C'd, personal belongings packed and sent home with patient. D/C to home via wc accompanied by staff.
--- NOTE | 2025-04-30 12:49 | W.DCSUMMARY ---
Discharge Summary
Discharge Data
Date of Admission: 04/27/25
Date of Discharge: 04/30/25
-
Pending Results: No
Hospital Course
50 years old male presented with chest pain. Patient was diagnosed with non-ST elevation [place]. He had history of hypertension. Patient was evaluated by drafting technician. He underwent left heart catheterization with coronary and single-plane left
ventriculography, he had successful stenting of OM 2 with a 2.5 x 23 mm Xience stent that was implanted at 9 ashlee and postdilated with a 3.5 mm noncompliant balloon to [address] Osorio on 04/28. Patient started to feel better with resolution of his
chest pain. Dr. Osorio recommended repeat catheterization for hemodynamic assessment of right coronary artery. Patient underwent left heart catheterization that showed 40% proximal RCA stenosis and very eccentric 50 to 60% mid RCA stenosis which
is IFR negative at 0.[address] Urban on 04/29. No complications reported. Patient was started on high intensity statin with guideline directed medical therapy for goal blood pressure below 130/80. He was started on losartan and dual antiplatelet
therapy with aspirin and Brilinta. Patient remained hemodynamically stable. He did not have recurrent chest pain. His renal function remained normal upon discharge. Hemoglobin A1c 6.4. Patient was advised to follow-up with his a primary care
doctor. He was discharged home in a stable condition.
Discharge Plan
-
Patient Disposition: Home (Routine Discharge)
Discharge Diagnosis/Procedures: NSTEMI, s/p angioplasty and stent to Left Circumflex artery
You are started on new medications:
-Aspirin and Brilinta, antiplatelet, to prevent occlusion of stent, potential side effects include the bleeding.
-Losartan, ARB inhibitor, potential side effect include renal insufficiency, hyperkalemia
-Increased dose of atorvastatin to 80 mg, potential side effects include myopathy, elevated liver enzyme, myositis
Diet: Low Fat and Low Sodium
Blood Work: BMP in 2 weeks
Other Services: Cardiac Rehab
Stand Alone Forms: DC Instructions- Cath/EP Lab
Referrals:
Awilda Mckinley PA-C [Specified Professional Personl, Cardiology] - 05/20/25 9:40 am
Kalyani Logan MD [Family Provider, [facility]] - in one to two weeks
Prescriptions:
New
ticagrelor [Brilinta] 90 mg tablet
90 mg PO BID Qty: 60 11RF
losartan 50 mg Tablet
50 mg PO DAILY Qty: 30 0RF
atorvastatin 80 mg Tablet
80 mg PO DAILY Qty: 30 0RF
nitroglycerin 0.4 mg Tablet, Sublingual
0.4 mg sublingual Q5MPRN PRN (Reason: chest pain) Qty: 10 0RF
aspirin 81 mg Tablet,Chewable
81 mg PO DAILY Qty: 30 0RF
Continued
levothyroxine 100 mcg Tablet
100 mcg PO SUTUTHSA
levothyroxine 100 mcg Tablet
150 mcg PO MOWEFR
citalopram 20 mg Tablet
20 mg PO DAILY
omeprazole 20 mg Tablet,Delayed Release (Dr/Ec)
20 mg PO DAILY
Discontinued
Advil Cold and Sinus 30-200 mg Tablet
2 tab PO TIDPRN PRN (Reason: cold and sinus)
atorvastatin 10 mg Tablet
10 mg PO DAILY
Discharge Orders:
Discharge Patient (As Directed); Ordered 04/30/25
Ordered By: Socorro Arias
Care Plan Goals
Care Plan Goals:
Problem: Readiness for enhanced knowledge related to diagnosis and treatment plan
Goal: Understand your diagnosis and treatment plan needs, including medications if applicable.
Instructions: Know your diagnosis, underlying causes and treatment plan options, including medications if applicable. Consult with your health care team to learn about your diagnosis and treatment plan, including medications if applicable.
Discharge Date and Time
Discharge Date/Time: 04/30/25 10:40
Print Language: GUAMANIAN
== END 2025-04-30 10:40 | disposition home or self-care (01) | DRG 322 ==
LOC: IVU 20:26
PROVIDERS: Emergency Medicine; Internal Medicine Cardiovascular Disease; Internal Medicine Interventional Cardiology; Nurse Practitioner; Physician Assistant; ADMITTING PHYSICIAN Internal Medicine; ATTENDING PHYSICIAN Internal Medicine; EMERGENCY PHYSICIAN Emergency Medicine; FAMILY PHYSICIAN Family Medicine; OTHER PHYSICIAN Internal Medicine Interventional Cardiology
PROC: B2111ZZ Fluoroscopy of Multiple Coronary Arteries using Low Osmolar Contrast (ICD-10-PCS; 2025-04-28)
PROC: 4A023N7 Measurement of Cardiac Sampling and Pressure, Left Heart, Percutaneous Approach (ICD-10-PCS; 2025-04-28)
PROC: 027034Z Dilation of Coronary Artery, One Artery with Drug-eluting Intraluminal Device, Percutaneous Approach (ICD-10-PCS; 2025-04-28)
PROC: B240ZZ3 Ultrasonography of Single Coronary Artery, Intravascular (ICD-10-PCS; 2025-04-28)
PROC: B2151ZZ Fluoroscopy of Left Heart using Low Osmolar Contrast (ICD-10-PCS; 2025-04-28)
PROC: 4A033BC Measurement of Arterial Pressure, Coronary, Percutaneous Approach (ICD-10-PCS; 2025-04-29)
PROC: B2101ZZ Fluoroscopy of Single Coronary Artery using Low Osmolar Contrast (ICD-10-PCS; 2025-04-29)
DX: I21.4 Non-ST elevation (NSTEMI) myocardial infarction (principal); E03.9 Hypothyroidism, unspecified; I10 Essential (primary) hypertension; I25.10 Atherosclerotic heart disease of native coronary artery without angina pectoris; K21.9 Gastro-esophageal reflux disease without esophagitis; R73.9 Hyperglycemia, unspecified; Z87.891 Personal history of nicotine dependence
CPT/HCPCS: 71045; 80048; 80053; 80061; 83036; 83690; 84484; 85025; 85027; 85347; 85730; 92978; 93005; 93306; 93458; 93799; 96374; 96376; 99152; 99153; 99285; C1725; C1753; C1769; C1874; C1894; C9600; Q9967

== ENCOUNTER 2025-05-21 16:05 | Outpatient (RCR) | payer OTHER, SELFPAY | END 2025-05-21 23:59 | disposition home or self-care (01) | LOC: CRHB 16:05 | PROVIDERS: ATTENDING PHYSICIAN Internal Medicine Interventional Cardiology; FAMILY PHYSICIAN Family Medicine | DX: I25.10 Atherosclerotic heart disease of native coronary artery without angina pectoris (principal); Z95.5 Presence of coronary angioplasty implant and graft; I25.2 Old myocardial infarction | CPT/HCPCS: 93797; 93798; G0422 ==

== ENCOUNTER 2025-06-20 16:57 | Outpatient (RCR) | payer OTHER, SELFPAY | END 2025-06-20 23:59 | disposition home or self-care (01) | LOC: CRHB 16:57 | PROVIDERS: ATTENDING PHYSICIAN Internal Medicine Interventional Cardiology; FAMILY PHYSICIAN Family Medicine | DX: I25.10 Atherosclerotic heart disease of native coronary artery without angina pectoris (principal); Z95.5 Presence of coronary angioplasty implant and graft; I25.2 Old myocardial infarction | CPT/HCPCS: 93797; 93798 ==